=== PATIENT | female | born 1955 | race Caucasian/White ===

== ENCOUNTER 2017-08-17 18:01 | Inpatient (IN) | payer SELFPAY ==
[~2017-08-17] VITALS: Ht 167.6 cm; Wt 70.3 kg
[~2017-08-17 18:01] MED LIST: IV NORMAL SALINE 1000ML BAG 1,000 ML IV SCH
--- NOTE | 2017-08-17 18:06 | PHYS DOC ---
Past Medical History Past Medical History: Hypertension, Hyperthyroid Past Surgical History: No Surgical History Alcohol Use: None Drug Use: None Adult General Chief Complaint Chief Complaint: CHEST PAIN HPI HPI 61-year-old female with a history of tobacco abuse hypertension and a family history of coronary artery disease in the seventh decade, now presents the emergency department complaining of chest pain. Patient has had some left-sided chest pain intermittently over the past several days. She denies exertional pain or pleuritic pain. No productive cough or fever. No nausea vomiting or diaphoresis and patient denies shortness of air. She's never had a cardiac workup specifically no stress or calf. Patient was concerned given her family history social she came to the emergency department for evaluation. She is currently pain-free. 3 baby aspirin given prior to arrival. Review of Systems Review of Systems Constitutional: Denies fever or chills [] Eyes: Denies change in visual acuity, redness, or eye pain [] HENT: Denies nasal congestion or sore throat [] Respiratory: Denies cough or shortness of breath [] Cardiovascular: No additional information not addressed in HPI [] GI: Denies abdominal pain, nausea, vomiting, bloody stools or diarrhea [] : Denies dysuria or hematuria [] Musculoskeletal: Denies back pain or joint pain [] Integument: Denies rash or skin lesions [] Neurologic: Denies headache, focal weakness or sensory changes [] Endocrine: Denies polyuria or polydipsia [] All other systems were reviewed and found to be within normal limits, except as documented in this note. Current Medications Current Medications Current Medications Medications (Trade) Dose Ordered Sig/[facility] Start Time Stop Time Status Last Admin Dose Admin Aspirin (Children'S Aspirin) 81 mg 1X ONCE 08/17/17 18:30 08/17/17 18:31 DC 08/17/17 18:30 81 MG Sodium Chloride 1,000 ml @ 100 mls/hr Q10H 08/17/17 07:52 08/17/17 18:08 DC 08/17/17 18:22 100 MLS/HR Allergies Allergies Physical Exam Physical Exam Constitutional: Well developed, well nourished, no acute distress, non-toxic appearance. [] HENT: Normocephalic, atraumatic, bilateral external ears normal, oropharynx moist, no oral exudates, nose normal. [] Eyes: PERRLA, EOMI, conjunctiva normal, no discharge. [] Neck: Normal range of motion, no tenderness, supple, no stridor. [] Cardiovascular:Heart rate regular rhythm, no murmur [] Lungs & Thorax: Bilateral breath sounds clear to auscultation [] Abdomen: Bowel sounds normal, soft, no tenderness, no masses, no pulsatile masses. [] Skin: Warm, dry, no erythema, no rash. [] Back: No tenderness, no CVA tenderness. [] Extremities: No tenderness, no cyanosis, no clubbing, ROM intact, no edema. [] Neurologic: Alert and oriented X 3, normal motor function, normal sensory function, no focal deficits noted. [] Psychologic: Affect normal, judgement normal, mood normal. [] Current Patient Data Vital Signs Vital Signs Date Time Temp Pulse Resp B/P (MAP) Pulse Ox O2 Delivery O2 Flow Rate FiO2 08/17/17 19:09 82 20 147/82 (103) 94 Room Air 08/17/17 18:09 98.1 98.1 Lab Values Laboratory Tests Test 08/17/17 18:11 White Blood Count 13.3 x10^3/uL (4.0-11.0) H Red Blood Count 5.21 x10^6/uL (3.50-5.40) Hemoglobin 15.9 g/dL (12.0-15.5) H Hematocrit 46.9 % (36.0-47.0) Mean Corpuscular Volume 90 fL (79-100) Mean Corpuscular Hemoglobin 31 pg (25-35) Mean Corpuscular Hemoglobin Concent 34 g/dL (31-37) Red Cell Distribution Width 13.5 % (11.5-14.5) Platelet Count 264 x10^3/uL (140-400) Neutrophils (%) (Auto) 53 % (31-73) Lymphocytes (%) (Auto) 34 % (24-48) Monocytes (%) (Auto) 10 % (0-9) H Eosinophils (%) (Auto) 2 % (0-3) Basophils (%) (Auto) 2 % (0-3) Neutrophils # (Auto) 7.0 x10^3uL (1.8-7.7) Lymphocytes # (Auto) 4.5 x10^3/uL (1.0-4.8) Monocytes # (Auto) 1.4 x10^3/uL (0.0-1.1) H Eosinophils # (Auto) 0.2 x10^3/uL (0.0-0.7) Basophils # (Auto) 0.2 x10^3/uL (0.0-0.2) Sodium Level 137 mmol/L (136-145) Potassium Level 3.5 mmol/L (3.5-5.1) Chloride Level 100 mmol/L (98-107) Carbon Dioxide Level 26 mmol/L (21-32) Anion Gap 11 (6-14) Blood Urea Nitrogen 21 mg/dL (7-20) H Creatinine 0.9 mg/dL (0.6-1.0) Estimated GFR (Cockcroft-Gault) 64.1 BUN/Creatinine Ratio 23 (6-20) H Glucose Level 117 mg/dL (70-99) H Calcium Level 10.7 mg/dL (8.5-10.1) H Total Bilirubin 0.3 mg/dL (0.2-1.0) Aspartate Amino Transferase (AST) 40 U/L (15-37) H Alanine Aminotransferase (ALT) 55 U/L (14-59) Alkaline Phosphatase 106 U/L (46-116) Troponin I Quantitative < 0.017 ng/mL (0.000-0.055) Total Protein 8.4 g/dL (6.4-8.2) H Albumin 4.1 g/dL (3.4-5.0) Albumin/Globulin Ratio 1.0 (1.0-1.7) Laboratory Tests 08/17/17 18:11 Laboratory Tests 08/17/17 18:11 EKG EKG EKG with normal sinus rhythm at 97 normal axis no STEMI nonspecific ST and T- wave findings[] Radiology/Procedures Radiology/Procedures Chest x-ray negative no acute disease interpreted by me[] Course & Med Decision Making Course & Med Decision Making Pertinent Labs and Imaging studies reviewed. (See chart for details) Signs and symptoms consistent with chest pain a possible cardiac etiology in a patient with multiple cardiac risk factors. She is clinically stable and well- appearing. Chest x-ray and EKG benign. Troponin negative. Aspirin given. Patient clinically stable. Case discussed with hospitalist on-call who is aware of history and findings and agrees with inpatient admission for full cardiac workup. On reevaluation prior to transport to floor patient states she would prefer to sign out AGAINST MEDICAL ADVICE and follow-up with a truck loader and unloader is now patient. Patient is aware of the risks including or permanent disability. You know the results so far reassuring patient is aware of the possibility of cardiac ischemic an evolving coronary artery disease as the etiology her pain. She is clearly aware that workup which is negative so far does not rule out this possibility. Discussed with patient at length risks and benefits and that is being admitted to the hospitalist standard of care. Despite this patient insists on signing out AGAINST MEDICAL ADVICE. She will be given the name of Dr. ziyad Duque the truck loader and unloader consolidation accountant today to follow up with him in the office for stress test. Patient is encouraged to return to the emergency department for any time or for any concerns for full workup and treatment as needed. She will leave AGAINST MEDICAL ADVICE Dragon Disclaimer Dragon Disclaimer This electronic medical record was generated, in whole or in part, using a voice recognition dictation system. Departure Departure Impression: Primary Impression: Left against medical advice Additional Impression: Chest pain Disposition: AGAINST MEDICAL ADVICE Condition: GUARDED Referrals: TRENTON PELLETIER MD Patient Instructions: Discharge Against Medical Advice Additional Instructions: As we have discussed at length, you're leaving AGAINST MEDICAL ADVICE. Be aware that it is possible that your chest pain could be a result of evolving heart disease. Leaving the hospital could result in or permanent disability from a cardiac event this evening or even in the parking lot. Despite understanding these risks, you've decided to sign out AGAINST MEDICAL ADVICE. Your encouraged to return any time for admission and full workup. If you choose not to return, follow-up with cardiology Dr. Pelletier immediately as an outpatient to arrange stress testing and further workup and treatment as needed. Return immediately for new severe or worsening symptoms or even if you change your mind and decide you're willing to be admitted. Problem Qualifiers KARLY GUEVARA MD Aug 17, 2017 18:06
[2017-08-17] MEDS ORDERED: ASPIRIN CHEWABLE 81 MG TABLET. PO ONE ×2 (18:15→18:30)
[2017-08-17 18:22] LABS: BASO # 0.2 x10^3/uL (0.0-0.2); BASO % 2 % (0-3); EOS % 2 % (0-3); HEMATOCRIT 46.9 % (36.0-47.0); HEMOGLOBIN 15.9 g/dL (12.0-15.5); LYMPH # 4.5 x10^3/uL (1.0-4.8); LYMPH % 34 % (24-48); MEAN CORPUSCULAR HEMOGLOBIN 31 pg (25-35); MEAN CORPUSCULAR HGB CONC 34 g/dL (31-37); MEAN CORPUSCULAR VOLUME 90 fL (79-100); MONO % 10 % (0-9); NEUT % 53 % (31-73); PLATELET COUNT 264 x10^3/uL (140-400); RED BLOOD COUNT 5.21 x10^6/uL (3.50-5.40); RED CELL DISTRIBUTION WIDTH 13.5 % (11.5-14.5); WHITE BLOOD COUNT 13.3 x10^3/uL (4.0-11.0)
[2017-08-17 18:30] LABS: CALCIUM 10.7 mg/dL (8.5-10.1); CREATININE 0.9 mg/dL (0.6-1.0); GFR 64.1; POTASSIUM 3.5 mmol/L (3.5-5.1)
[2017-08-17 18:38] LABS: ALBUMIN 4.1 g/dL (3.4-5.0); TOTAL BILIRUBIN 0.3 mg/dL (0.2-1.0); TOTAL PROTEIN 8.4 g/dL (6.4-8.2)
[2017-08-17] MEDS ORDERED: ONDANSETRON PF 4 MG/2 ML VIAL. IV PRN (19:45)
[2017-08-17] MEDS ORDERED: MORPHINE SULFATE 2 MG/ML DISP.SYRIN. IV PRN (20:45)
[2017-08-17 23:18] VITALS: BP 100/53
[2017-08-18 03:00] VITALS: BP 110/62
--- NOTE | 2017-08-18 06:14 | EKG ---
[facility] [address] [place] [id number] Test Date: 2017-08-17 Test Time: 18:07:09 Pat Name: GIACOMO CROCKETT Department: Room: 528 1 Gender: F Impregnating Helper: MINE : 1955 Requested By: KARLY GUEVARA Order Number: [id number] Reading MD: Otf Pelletier Measurements Intervals Mcdavid Rate: 97 P: 16 PA: 172 QRS: 35 QRSD: 98 T: 48 QT: 332 QTc: 426 Interpretive Statements SINUS RHYTHM Electronically Signed On 08-30-2017 13:57:07 [employer] by Otf Pelletier
--- NOTE | 2017-08-18 07:56 | RAD ---
EXAM: Chest one view. HISTORY: Chest and epigastric pain. Hypertension. COMPARISON: None. FINDINGS: A frontal view of the chest is obtained. There is mild atelectasis or scarring in the costophrenic angles. There are no confluent infiltrates. There is no pneumothorax or pleural effusion. The heart is not enlarged. IMPRESSION: 1. No confluent infiltrates.
== END 2017-08-17 22:15 | disposition left against medical advice (07) | DRG 313 ==
LOC: ER 18:01 → 5 NORTH 19:31
PROVIDERS: ADMIT Internal Medicine; ATTEND Internal Medicine
DX: R07.9 Chest pain, unspecified (principal); E05.90 Thyrotoxicosis, unspecified without thyrotoxic crisis or storm; I10 Essential (primary) hypertension; Z82.49 Family history of ischemic heart disease and other diseases of the circulatory system; Z87.891 Personal history of nicotine dependence
CPT/HCPCS: 36415; 71010; 80053; 84484; 85025; 93005; 96360; J7030; 99285-25